=== PATIENT | male | born 1970 | race Caucasian/White ===

== ENCOUNTER 2022-10-25 13:46 | Outpatient (CLI) | payer OTHER ==
--- NOTE | 2022-10-25 17:14 | XRAY Report ---
PROCEDURE: Knee 3 View RT INDICATIONS: PAIN IN RIGHT KNEE TECHNIQUE: 3 views of the right knee(s) were acquired. COMPARISON: None. FINDINGS: Bones: No fractures or dislocations. No suspicious bony lesions. Definite osteophytes and possibl e narrowing of joint space. This is tricompartmental. Soft tissues: No knee joint effusion. Metallic densities project over the anterior thigh soft tissue s on the lateral view, possible surgical clips or other nonspecific radiopaque foreign body. IMPRESSION: No acute bony abnormality. If there remains a high clinical concern for fracture, consider cross-sect ional imaging now. If pain persists, consider repeat x-ray in 10-14 days or cross-sectional imaging. Tricompartmental Kellgren-Joseph scale of osteoarthritis: Grade 1-2: mild osteoarthritis. Reviewed by: Anup Frank MD on 10/25/2022 5:12 PM PDT Approved by: Anup Frank MD on 10/25/2022 5:12 PM PDT Station ID: [id number]
== END 2022-10-25 23:59 | disposition home or self-care (01) ==
LOC: DI.N 13:46
PROVIDERS: ATTEND Physician Assistant
DX: M17.11 Unilateral primary osteoarthritis, right knee (principal)

== ENCOUNTER 2022-11-25 08:57 | Outpatient (CLI) | payer OTHER ==
--- NOTE | 2022-11-28 08:27 | MRI Report ---
PROCEDURE: KNEE WO - RT INDICATIONS: STRAIN OF RIGHT KNEE TECHNIQUE: Noncontrast sagittal PD fast spin echo and T2 fast spin echo with fat saturation, sagittal 3-D gradie nt sequence with fat saturation; coronal T1 spin echo and PD fast spin echo with fat saturation, and axial PD fast spin echo with fat saturation through the knee. COMPARISON: X-ray right knee, 10/25/2022. FINDINGS: Image quality: Excellent. Menisci: There is an oblique tear involving the posterior horn the medial meniscus (series 5 image 27 ; series 10 image 23). There is tear of the posterior root of the lateral meniscus (series 5 image 13; series 10 image 23; s eries 3 image 22. Cruciate ligaments: The anterior and posterior cruciate ligaments appear intact. Medial structures: The medial collateral ligament appears intact. There is mild thickening of the MC L, probably sequelae of remote injury/scarring. The semimembranosus tendon insertions and meniscocap sular junction appear intact. Visualized portions of the pes anserinus tendons appear normal. No ab normal bursal fluid. Lateral structures: The lateral collateral ligament and the biceps femoris tendon appear intact. Th e popliteus tendon appears normal. Iliotibial band appears normal. Anterior structures: The quadriceps and patellar tendons appear intact. There is mild quadriceps ten dinitis with Patellar alignment is normal. No femoral trochlear dysplasia or ventral trochlear promi nence. No edema in the infrapatellar fat pad. Bones and cartilage: No bone marrow contusions or fractures. Tricompartmental cartilage thinning and fibrillation, most pronounced in the patellofemoral compartment. There is denuded articular surface in the medial facet of patella. Joint space: There is small knee joint effusion. Small popliteal cysts. Small synovial cysts at the proximal tibiofibular joint. Normal appearing synovial plicae are incidentally noted. IMPRESSION: 1. Oblique tear of the posterior horn the medial meniscus. 2. Tear of the posterior root of the lateral meniscus. 3. Tricompartmental cartilage thinning and fibrillation. 4. Mild quadriceps tendinitis. 5. Small popliteal cysts. Reviewed by: Zach Clark MD on 11/28/2022 8:26 AM PDT Approved by: Zach Clark MD on 11/28/2022 8:26 AM PDT Station ID: [id number]
== END 2022-11-25 08:58 | disposition home or self-care (01) ==
LOC: DI 08:57
PROVIDERS: ATTEND Physician Assistant
DX: S83.241A Other tear of medial meniscus, current injury, right knee, initial encounter (principal); S83.281A Other tear of lateral meniscus, current injury, right knee, initial encounter; M94.261 Chondromalacia, right knee; M76.891 Other specified enthesopathies of right lower limb, excluding foot

== ENCOUNTER 2022-11-27 08:00 | Outpatient (CLI) | payer OTHER ==
--- NOTE | 2022-11-27 21:21 | XRAY Report ---
PROCEDURE: Knee 2 View RT INDICATIONS: RIGHT KNEE SPRAIN, BILAT AP W/B RIGHT TUNNEL ONLY TECHNIQUE: 2 weightbearing views of the right knee(s) were acquired. COMPARISON: None. FINDINGS: Bones: No acute fractures or dislocations. No suspicious bony lesions. Degenerative changes of th e bilateral knee on the frontal views. Small marginal osteophytes seen. Degenerative changes appear t o be slightly more pronounced on the right. There is right greater than left mild medial compartment joint space narrowing. Soft tissues: No suspicious soft tissue calcifications or masses. IMPRESSION: No acute bony abnormality. Osteoarthrosis of the bilateral knee with medial compartment joint space n arrowing bilaterally. Reviewed by: Jeison Ruff MD on 11/27/2022 9:19 PM PDT Approved by: Jeison Ruff MD on 11/27/2022 9:19 PM PDT Station ID: [id number]
== END 2022-11-27 23:59 | disposition home or self-care (01) ==
LOC: DI.WOS 08:00
PROVIDERS: ATTEND Physician Assistant Surgical
DX: M17.11 Unilateral primary osteoarthritis, right knee (principal)